=== PATIENT | male | born 1970 | race Two or more races ===

== ENCOUNTER 2025-06-13 07:53 | Emergency (ER) | payer SELFPAY ==
[~2025-06-13] VITALS: Ht 177.8 cm; Wt 81.0 kg
--- NOTE | 2025-06-13 08:18 | ED.PDOC ---
History of Present Illness HPI Comments 55-year-old male with PMHx Seizures presents with a chief complaint of seizure activity. Per EMS, patient was walking and had a seizure. Patient fell onto the floor and suffered some abrasions and oral trauma. Bystanders saw patient and called 911. Patient has history of seizures with last one being 2 months ago. Patient does not take medications however for seizures. Patient was initially A/Ox3 but is now A/Ox4. Chief Complaint: Seizure Time Seen by MD: 08:11 Reviewed Notes: Medications, Allergies Allergies: Coded Allergies: NO KNOWN ALLERGIES (Unverified , 06/13/25) Information Source: Emergency Med Personnel Mode of Arrival: EMS Severity: Moderate Timing: Minutes Duration: Since onset Prehospital treatment: Radio Performer, [facility] Past Medical History PAST MEDICAL HISTORY: Seizures Surgical History: Denies all surgeries Family History Family History: Reviewed,noncontributory to illness Social History Smoker: Non-Smoker Alcohol: Denies ETOH Use Drugs: Denies Drug Use Lives In: Home Constitutional: denies: chills, diaphoresis, fatigue, fever, malaise, sweats, weakness, others EENTM: denies: blurred vision, double vision, ear bleeding, ear discharge, ear drainage, ear pain, ear ringing, eye pain, eye redness, hearing loss, mouth pain , mouth swelling, nasal discharge, nose bleeding, nose congestion, nose pain, photophobia, tearing, throat pain, throat swelling, voice changes, others Respiratory: denies: cough, hemoptysis, orthopnea, SOB at rest, shortness of breath, SOB with excertion, stridor, wheezing, others Cardiovascular: denies: chest pain, dizzy spells, diaphoresis, Dyspnea on exertion, edema, irregular heart beat, left arm pain, lightheadedness, palpitations, PND, syncope, others Gastrointestinal: denies: abdomen distended, abdominal pain, blood streaked bowels, constipated, diarrhea, dysphagia, difficulty swallowing, hematemesis, melena, nausea, poor appetite, poor fluid intake, rectal bleeding, rectal pain, vomiting, others Genitourinary: denies: burning, dysuria, flank pain, frequency, hematuria, incontinence, penile discharge, penile sore, pain, testicle pain, testicle swelling, urgency, others Neurological: reports: seizure; denies: dizziness, fainting, headache, left sided numbness, left sided weakness, numbness, paresthesia, pre-existing deficit, right sided numbness, right sided weakness, speech problems, tingling, tremors, weakness, others Musculoskeletal: denies: back pain, gout, joint pain, joint swelling, muscle pain, muscle stiffness, neck pain, others Integumetry: denies: bruises, change in color, change in hair/nails, dryness, laceration, lesions, lumps, rash, wounds, others Allergic/Immunocompromised: denies: Difficulty Healing, Frequent Infections, Hives, Itching, others Hematologic/Lymphatic: denies: anemia, blood clots, easy bleeding, easy bruising, swollen glands, others Endocrine: denies: excessive hunger, excessive sweating, excessive thirst, excessive urination, flushing, intolerance to cold, intolerance to heat, unexplained weight gain, unexplained weight loss, others Psychiatric: denies: anxiety, bipolar disorder, depression, hopeless, panic disorder, schizophrenia, sleepless, suicidal, others All Other Systems: Reviewed and Negative Physical Exam General Appearance: No Apparent Distress, Normal HEENT: Normal ENT Inspection, Pharynx Normal, TMs Normal Neck: Full Range of Motion, Non-Tender, Normal, Normal Inspection Respiratory: Chest Non-Tender, Lungs Clear, No Accessory Muscle Use, No Respiratory Distress, Normal Breath Sounds Cardiovascular: No Edema, No JVD, No Murmur, No Gallop, Normal Peripheral Pulses, Regular Rate/Rhythm Breast Exam: Deferred Gastrointestinal: No Organomegaly, Non Tender, No Pulsatile Mass, Normal Bowel Sounds, Soft Genitalia: Deferred Pelvic: Deferred Rectal: Deferred Extremities: No calf tenderness, Normal capillary refill, Normal inspection, Normal range of motion, Non-tender, No pedal edema Musculoskeletal : Apperance: Normal Neurologic: Alert, elect equip maint eng II-XII nml as Tested, No Motor Deficits, Normal Affect, Normal Mood, No Sensory Deficits Cerebellar Function: Normal Reflexes: Normal Skin: Dry, Normal Color, Warm Lymphatic: No Adenopathy Was a procedure done? Was a procedure done?: No Differential Dx Considerations may include: Breakthrough seizure, CVA, intracranial injury X-Ray, Labs, Meds, VS Vital Signs Date Time Temp Pulse Resp B/P (MAP) Pulse Ox O2 Delivery O2 Flow Rate FiO2 06/13/25 09:59 75 18 146/81 06/13/25 08:54 Room Air* 0 21 06/13/25 08:35 97.9 66 18 174/87 (116) 98 97.9 06/13/25 08:03 98.6 107 18 140/100 99 98.6 Lab Test 06/13/25 08:05 Range/Units POC Glucose 99 70-106 mg/dl Current Medications Medications (Trade) Dose Ordered Sig/Kaiser Route Start Time Stop Time Status Last Admin Sodium Chloride 1,000 ml @ 1,000 mls/hr Q1H ONCE IV 06/13/25 08:15 06/13/25 09:14 DC 06/13/25 08:35 Levetiracetam 200 ml @ 400 mls/hr ONCE ONCE IV 06/13/25 08:15 06/13/25 08:44 DC 06/13/25 08:34 Morphine Sulfate 4 mg ONCE ONCE IV 06/13/25 09:45 06/13/25 09:46 DC 06/13/25 09:59 Time of 1ST Reevaluation: 08:41 Reevaluation 1ST: Unchanged Patient Education/Counseling: Diagnosis, Treatment Family Education/Counseling: No Family Present SEPSIS Sepsis Screen Physician Orders Head Without Contrast (06/13/25 08:14) Vital Signs Date Time Temp Pulse Resp B/P (MAP) Pulse Ox O2 Delivery O2 Flow Rate FiO2 06/13/25 09:59 75 18 146/81 06/13/25 08:54 Room Air* 0 21 06/13/25 08:35 97.9 66 18 174/87 (116) 98 97.9 06/13/25 08:03 98.6 107 18 140/100 99 98.6 Medications Medications Dose Ordered Sig/Kaiser Route Start Time Stop Time Status Last Admin Dose Admin Levetiracetam 200 ml @ 400 mls/hr ONCE ONCE IV 06/13/25 08:15 06/13/25 08:44 DC 06/13/25 08:34 Morphine Sulfate 4 mg ONCE ONCE IV 06/13/25 09:45 06/13/25 09:46 DC 06/13/25 09:59 Sodium Chloride 1,000 ml @ 1,000 mls/hr Q1H ONCE IV 06/13/25 08:15 06/13/25 09:14 DC 06/13/25 08:35 Departure 1 Departure Time of Disposition: 10:03 (Patient likely had a breakthrough seizure. Patient is now A&O x3 and like to go home. We will discharge patient home with outpatient follow up) Impression: Primary Impression: Breakthrough seizure Disposition: 01 HOME / SELF CARE / HOMELESS Condition: Stable Additional Instructions: You had a breakthrough seizure today. It is important to take your seizure medication. You should stay well rested and well hydrated. You should follow up with your regular doctor within 1 week. If your symptoms worsen or you have any other concerns then please return to the emergency room. Discharged With: Self Critical Care Note Critical Care Time?: No Stability Stability form required: No Heart Score Heart Score: Heart Score Response (Comments) Value History N/A 0 EKG N/A 0 Age N/A 0 Risk Factors N/A 0 Troponin N/A 0 Total 0 I personally scribed for RADHA RICHARDSON MD ([email or web address]) on 06/13/25 at 08:18. Electronically submitted by Michele Valdez ([email or web address]). RADHA RICHARDSON MD Jun 13, 2025 08:18
[2025-06-13] MEDS: levETIRAcetam 1000 mg/100ml 200 ML IV ONE (08:34)
[2025-06-13] MEDS: SODIUM CHLORIDE 0.9% 1,000 ML IV ONE (08:35)
--- NOTE | 2025-06-13 08:52 | DVH ---
EXAM: CT HEAD WITHOUT CONTRAST INDICATION: seizure TECHNIQUE: CT of the head without intravenous contrast. Radiation Dose : 1. Head: CT Dose: CTDI volume is 0.07 mGy. Dose-length product is 920.17 mGy*cm The dose indicators for CT are the volume Computed Tomography (CT) Dose Index (CTDIvol) and the Dose Length Product (DLP), and are measured in units of mGy and mGy-cm, respectively. These indicators are not patient dose, but values generated from the CT scanner acquisition factors. The report includes radiation exposure data for exposures received during this examination. COMPARISON: None FINDINGS: There is no evidence of acute intracranial hemorrhage, extra-axial collection, mass effect, midline s hift, herniation or hydrocephalus. The ventricles, sulci and cisterns are age appropriate. The scruggs-white differentiation is intact. [id number] mucosal opacification of the paranasal sinuses. The surrounding soft tissues and osseous structures are unremarkable. IMPRESSION: No acute intracranial abnormality. [id number] mucosal opacification of the paranasal sinuses. Radiation optimization: All CT scans at this facility use at least one of these dose optimization yvan hniques: automated exposure control mA and/or kV adjustment per patient size (includes targeted exam s where dose is matched to clinical indication) or iterative reconstruction.
[2025-06-13] MEDS: MORPHINE SULFATE 4 MG/ML SYR/VIAL IV ONE (09:59)
[2025-06-13] MEDS: ONDANSETRON HCL 4 MG/2 ML VIAL IV ONE (10:02)
[2025-06-13 11:00] VITALS: BP 145/87; PULSE 65; RESP 18; TEMP 98.2; O2SAT 99
== END 2025-06-13 11:15 | disposition home or self-care (01) ==
LOC: ER 07:53 → EDBD 07:53 → ER 11:15
DX: G40.909 Epilepsy, unspecified, not intractable, without status epilepticus (principal); Z79.899 Other long term (current) drug therapy
CPT/HCPCS: 70450; 82947; 96361; 96365; 96375; 99285; J1953; J2270; J2405; 82962